=== PATIENT | male | born 1960 | race Caucasian/White ===

== ENCOUNTER → 2021-02-20 12:49 | Outpatient (BNVA) | payer MEDICARE, SELFPAY | PROVIDERS: PCP Pediatrics; Visit Provider Nurse Practitioner Family | DX: M47.816 Spondylosis without myelopathy or radiculopathy, lumbar region (principal); M53.3 Sacrococcygeal disorders, not elsewhere classified | CPT/HCPCS: 99202 ==

== ENCOUNTER 2021-03-12 08:14 | Outpatient (REF) | payer MEDICARE, SELFPAY ==
--- NOTE | ~2021-03-12 | FL_ITS ---
EXAMINATION: XR FLUOROSCOPY WITH IMAGES CLINICAL INFORMATION: Sacral coccygeal disorder. COMPARISON: None. TECHNIQUE: Fluoroscopy performed by Dr. Raymond Johnson. Fluoroscopy time: 0.1 minutes DAP: 1.02 Gycm2 Images: 1 FINDINGS: C-arm films of the sacrum demonstrates a needle about the inferior aspect of the right sacroiliac joint with small amount of contrast. FL/FL guidance in treatment room IMPRESSION: Needle inferior aspect of the right sacroiliac joint.
== END 2021-03-12 08:15 | disposition home or self-care (01) ==
LOC: HO.RADIR 08:14
PROVIDERS: Visit Provider Anesthesiology
DX: M53.3 Sacrococcygeal disorders, not elsewhere classified (principal)
CPT/HCPCS: 27096; J3300; Q9967

== ENCOUNTER → 2021-03-20 08:39 | Outpatient (BNVA) | payer MEDICARE, SELFPAY | PROVIDERS: PCP Pediatrics; Visit Provider Nurse Practitioner Family | DX: M47.816 Spondylosis without myelopathy or radiculopathy, lumbar region (principal); M53.3 Sacrococcygeal disorders, not elsewhere classified | CPT/HCPCS: 99212 ==

== ENCOUNTER 2021-06-07 11:09 | Day surgery (SDC) | payer OTHER, SELFPAY ==
[2021-05-31 08:51] VITALS: BMI 42.7
--- NOTE | ~2021-06-07 | FL_ITS ---
EXAMINATION: XR FLUOROSCOPY WITH IMAGES CLINICAL INFORMATION: Stimulator trial. COMPARISON: None TECHNIQUE: Fluoroscopy performed by Dr. Raymond Johnson Fluoroscopy time: 0.2 minutes DAP: 5.69 mGy-cm2 Images: 1 FINDINGS: A single image obtained of the pelvis reveals ventral stimulator electrode overlying the left sacrum. FL/FL guidance in OR IMPRESSION: Fluoroscopy was provided for pain management.
[2021-06-07 11:25] VITALS: BP 108/67; PULSE 63; RESP 20; TEMP 36.1; O2SAT 97
--- NOTE | 2021-06-07 11:47 | P.CONAN_ITS ---
[facility] Active Problems Active Problems: All Active Problems (Updated 05/31/21 @ 08:47 by Brit Henley RN) Spondylosis of lumbar region without myelopathy or radiculopathy (Acute) Sacroiliac joint pain (Acute) Past Medical History Medical History Atrial fibrillation COVID-19 vaccine series completed Elevated cholesterol Hypothyroid Lumbar spondylosis Mild ascending aorta dilatation Viral pericarditis Surgical History Surgical History H/O colonoscopy History of cardiac radiofrequency ablation Hx of gastric bypass Hx of total knee replacement History of Problems with Anesthesia: No Social History Social History Patient Tobacco Use Status: Former Tobacco user Quit Date: age 29 Tobacco use type: Cigarette Use of substances other than those prescribed or required for medical reasons: No Have you been hit, kicked, punched, or otherwise hurt by someone within the past year? If so, by whom?: No Are you DNR?: No Advance Directives Information Provided: Yes (as above noted) Advance Directives on File: No Recently lost weight without trying: No Eating poorly because of decreased appetite: No Nutrition Risks: No Nutritional Risk Poor oral hygiene: No (dental implant right upper / upper permanent bridge) Meds Allergies Allergy/AdvReac Type Severity Reaction Status Date / Time nitroglycerin Allergy Severe Decreased Verified 03/20/21 08:55 [From Nitroglyn] BP Home Medications Medication Instructions Recorded Confirmed Last Taken Type atorvastatin 10 mg tablet 10 mg PO DAILY 02/20/21 05/31/21 Unknown History levothyroxine 25 mcg tablet 25 mcg PO DAILY 02/20/21 05/31/21 Unknown History sotalol 80 mg tablet 80 mg PO BID 02/20/21 05/31/21 Unknown History ibuprofen 800 mg tablet 800 mg PO TID PRN 03/20/21 05/31/21 Unknown History multivitamin 1 tab PO DAILY 05/31/21 05/31/21 Unknown History Exam Exam Date and Time: June 07, 2021 1147 Height,Weight and Vital Signs: Height 6 ft Weight 142.882 kg Last Vital Signs Temp 97.0 F 06/07/21 11:25 Pulse 63 06/07/21 11:25 Resp 20 06/07/21 11:25 BP 108/67 06/07/21 11:25 Pulse Ox 97 06/07/21 11:25 Airway Mallampati Class: III TM Dist: >3cm Neck ROM: Full Loose/Missing/Broken Teeth: No Heart: RRR Lungs: CTA Assessment and Plan Assessment Anesthesia Assessment: Anesthesia Plan Discussed and Chart Reviewed Final Anesthetic Review History of Problems with Anesthesia: No NPO: Yes ASA Class: III Final Preanesthetic Review: Meds/Allgs Chart Reviewed, Consent Obtained/Reviewed and Anes Risks/Benef Reviewed Patient Risk: Intermediate Procedure Risk: Low Anesthetic Plan Anesthetic Plan: MAC: Disposition: Standard PACU
--- NOTE | 2021-06-07 11:48 | P.HPSUR_ITS ---
Pre-Procedural Eval Section A Date of Service: 06/07/21 The patient is an INPATIENT: No Changes since office visit: Yes Patient answered all questions The History & Physical has been completed within 30 days and I have reviewed it.: No Section B Chief Complaint: Sacrococcygeal disorders, Details of Present Illness: as above Relevant Family History (Specify if Yes): No Relevant Social History: None Present Medications: see Short Stay Collaborative assessment Medical History: No relevant PMH History of Previous Operations: No relevant previous surgery Allergies: Allergies Allergy/AdvReac Type Severity Reaction Status Date / Time nitroglycerin Allergy Severe Decreased Verified 03/20/21 08:55 [From Nitroglyn] BP Review of Systems Sugical H&P ROS: Negative: Constitution, Cardiovascular, Respiratory, Neurological, Psychiatric, Hem-Onc, Allergic/Immunologic, Gastrointestinal, Genitourinary, Musculoskeletal, Integumentary, Endocrine and Eyes/Ears/Nose/Th roat Exam Surgical H&P Exam: Normal: HEENT, Normal: Heart, Normal: Lungs, Normal: Extremities, Normal: Abdomen, Normal: Skin and Normal: Neurological Plan Diagnosis/Plan: Unchanged I have reviewed the history and physical and performed a pertinent physical examination on my patient. No changes have occurred unless specified.
--- NOTE | 2021-06-07 11:51 | W.PM.OPN ---
Operative Note Operative Note Date of Service: 06/07/21 Narrative: trial of right sacroiliac joint innervation stimulation stim wavePramod Johnson is very pleasant 60 years old male who came today into the operating room for?trial of Peripheral nerve stimulation?of the right Sacroiliac joint innervation trial with stimwave technology.? Preoperatively patient received 3 g cefazolin _approximately 30 minutes before the procedure. After obtaining informed consent patient was brought to the operating room, he was positioned prone on operating table, [place] [employer] monitors were applied and patient was deeply sedated. ?? Time-out was performed delineating correct site, side, the nature of the procedure, patient's allergy, preoperative antibiotic.? All operating room staff was participating in OR time-out procedure. Patient's entire back was prepped with ChloraPrep twice and draped with full body drape.? Sterilely draped C-arm was brought over operating field and? attention was concentrated on the right sacroiliac joint area .? 16 cm malleable Coude needle was inserted to the skin in the projection of about 6 cm cephalad of the right sacroiliac joints upper margin.? The needle was advanced toward the sacral bone and after that followed the curvature of the sacral bone to the point where the lower most portion of the sacroiliac joint is contacted.? On the lateral view the needle was posterior to the sacral bone ,Guitar wire was inserted into the needle and advanced into position accross the peripheral nerves of S1 through S4 origins. therefore covering innervation of sacroiliac joint. stimulating lead was inserted through the needle and advanced to the lower margin of the sacroiliac joint.?. After that the stirring stylette was removed from the needle and copper wire stimulating stylet was inserted into the lead.? Coude needle was removed, care was taken to keep the electrode in place.? Skin at the point of entrance of the lead was prepped with Mastisol, and electrode was taped with Steri-Strips the skin of the patient at the point of entrance. Below the stimulating antenna 2nd margin the lead was tied on itself.? 1 silk suture was used to anchor the stimulating lead to the skin of the patient as well.? After that Steri-Strips were used to fix the lead to the skin smeared with Mastisol.? After that sterile dressing was applied. The transmitter was placed over the antenna of the lead and it was taped to the skin. At this moment patient was awaken and transferred to the bed.? He was recovering uneventfully in PACU. ?
[2021-06-07 13:30] VITALS: BP 133/63; PULSE 81; RESP 14; TEMP 36.4; O2SAT 94
--- NOTE | 2021-06-07 13:35 | P.BOP_ITS ---
Brief Operative Note Date of Service: 06/07/21 Pre-op diagnosis: sacroiliitis Post-op diagnosis: same Procedure: right sacroiliac joint innervation stimulation trial with stim wave Implants: none permanent Surgeon: Raymond Johnson MD Anesthesia: MAC Was an Injection Molding Supervisor used for this Procedure?: No Estimated blood loss (mL): 3 Pathology: none sent Condition: stable Disposition: PACU
[2021-06-07 13:45] VITALS: BP 146/96; PULSE 61; RESP 16; TEMP 36.6; O2SAT 96
[2021-06-07 13:57] VITALS: BP 108/85; PULSE 67; RESP 16; TEMP 36.6; O2SAT 97
== END 2021-06-07 14:38 | disposition home or self-care (01) ==
PROVIDERS: PCP Pediatrics; Visit Provider Anesthesiology
PROC: (CPT 64555; principal; 2021-06-07 12:40)
DX: M47.816 Spondylosis without myelopathy or radiculopathy, lumbar region (principal); M53.3 Sacrococcygeal disorders, not elsewhere classified; E66.01 Morbid (severe) obesity due to excess calories; Z68.41 Body mass index [BMI] 40.0-44.9, adult; G47.33 Obstructive sleep apnea (adult) (pediatric); G89.4 Chronic pain syndrome; F19.11 Other psychoactive substance abuse, in remission; Z79.899 Other long term (current) drug therapy; Z86.79 Personal history of other diseases of the circulatory system; Z98.84 Bariatric surgery status
CPT/HCPCS: 64555; C1897; J0690; J2250; J2795; J3010

== ENCOUNTER → 2021-06-13 12:52 | Outpatient (BNVA) | payer OTHER, SELFPAY | PROVIDERS: Visit Provider Nurse Practitioner Family | DX: Z13.89 Encounter for screening for other disorder (principal) ==